=== PATIENT | female | born 1960 ===

== ENCOUNTER 2016-12-28 18:53 | Observation (INO) | payer MEDICAID, SELFPAY ==
[2016-12-28 18:53] VITALS: BMI 31.4
--- NOTE | 2016-12-28 20:01 | ED PDOC ---
HPI: Chest Pain Time Seen by Provider: 12/28/16 19:21 Chief Complaint (Nursing): Chest Pain Chief Complaint (Provider): Chest Pain History Per: Patient History/Exam Limitations: no limitations Onset/Duration Of Symptoms: Days (1x) Current Symptoms Are (Timing): Better (currently improving) Severity: Moderate Quality: Pressure (left sided pressure) Associated Symptoms: Dyspnea, Other (palpitations, anxiety) Additional Complaint(s): 56 year old female presents to the ED with complaints of chest pain that started last night 25x hours prior to arrival while she was at rest. She reports having associated shortness of breath, palpitations, and anxiety. She reports that her symptoms are currently improving. 2x days ago, she had similar symptoms which resolved spontaneously. PMD: Non [facility] provider, Dr. Pelletier Past Medical History Reviewed: Historical Data, Nursing Documentation, Vital Signs Vital Signs: Last Vital Signs Temp 98.2 F 12/28/16 19:03 Pulse 93 H 12/28/16 21:39 Resp 16 12/28/16 19:03 BP 143/87 12/28/16 19:03 Pulse Ox 100 12/28/16 21:39 - Medical History PMH: Asthma, Diabetes, GERD, HIV, HTN, Hypercholesterolemia, Chronic Kidney Disease Other PMH: patient denies having a medical history of: myocardial infarctions, srokes. - Surgical History Surgical History: No Surg Hx Denies: Appendectomy, Tonsillectomy, - Family History Family History: States: Diabetes ("everyone is a diabetic in my house"), Other Other Family History: heart disease - Social History Current smoker - smoking cessation education provided: No Ex-Smoker (has not smoked in the last 12 months): Yes Alcohol: None Drugs: Denies - Home Medications Home Medications: Ambulatory Orders Medication Instructions Recorded Enalapril Maleate [Enalapril] 5 mg PO DAILY 04/08/15 Insulin Glargine, Recombina 65 unit SC HS 04/08/15 [Lantus] Insulin Lispro, Recombinant 15 units SC ASDIR 04/08/15 [Humalog] Metoprolol Tartrate [Lopressor] 50 mg PO DAILY 04/08/15 Ondansetron ODT [Zofran ODT] 4 mg PO Q6 PRN #10 odt 10/14/15 Dicyclomine [Bentyl] 20 mg PO BID PRN #30 tab 05/25/16 Ondansetron [Zofran] 4 mg PO Q8H PRN #30 tab 05/25/16 - Allergies Allergies/Adverse Reactions: Allergies Allergy/AdvReac Type Severity Reaction Status Date / Time naproxen Allergy URTICARIA Verified 12/28/16 20:30 Review of Systems ROS Statement: Except As Marked, All Systems Reviewed And Found Negative Cardiovascular: Positive for: Chest Pain, Palpitations Respiratory: Positive for: Shortness of Breath Musculoskeletal: Positive for: Other (intermittent extremity cramps ongoing for many months) Psych: Positive for: Anxiety Physical Exam - Reviewed Nursing Documentation Reviewed: Yes Vital Signs Reviewed: Yes - Physical Exam Appears: Positive for: Well, Non-toxic, No Acute Distress Head Exam: Positive for: ATRAUMATIC, NORMOCEPHALIC Skin: Positive for: Normal Color, Warm, Dry Eye Exam: Positive for: EOMI, PERRL ENT: Negative for: Pharyngeal Erythema, Tonsillar Exudate Neck: Positive for: Normal Cardiovascular/Chest: Positive for: Regular Rate, Rhythm, Chest Non Tender. Negative for: Murmur Respiratory: Positive for: Normal Breath Sounds. Negative for: Respiratory Distress Gastrointestinal/Abdominal: Positive for: Normal Exam, Soft. Negative for: Tenderness, Mass, Distended, Guarding Back: Positive for: Normal Inspection. Negative for: Decreased ROM Extremity: Positive for: Normal ROM. Negative for: Deformity, Swelling Lymphatic: Negative for: Adenopathy Neurologic/Psych: Positive for: Alert, Oriented (3x). Negative for: Motor/ Sensory Deficits - Laboratory Results Result Diagrams: 12/28/16 20:23 12/28/16 20:30 - ECG ECG: Positive for: Interpreted By Me, Viewed By Me ECG Rhythm: Positive for: Normal QRS, Normal ST Segment, Sinus Rhythm (normal). Negative for: ST/T Changes Rate: 93 (beats per minute) O2 Sat by Pulse Oximetry: 100 (RA) Pulse Ox Interpretation: Normal - Radiology X-Ray: Interpreted by Me, Viewed By Me X-Ray Interpretation: No Acute Disease Medical Decision Making Medical Decision Makin:21 Initial impression: 56 year old female with chest pain. Differential diagnoses include but are not limited to acute coronary syndrome, costochondritis, anxiety , reflux, and pulmonary embolism. Initial plan: * XRay chest * EKG * bloodwork * urine * reevaluation :35 Labs and chest Xray are unremarkable. Discussed with Dr. Meehan ([facility] resident) for hospitalization to rule out acute coronary syndrome. Discussed findings and plan of care with patient. Clinical impression: chest pain. Scribe Attestation: Documented by Pricila Lizama, acting as a scribe for Araceli Machado MD. Provider Scribe Attestation: All medical record entries made by the Scribe were at my direction and personally dictated by me. I have reviewed the chart and agree that the record accurately reflects my personal performance of the history, physical exam, medical decision making, and the department course for this patient. I have also personally directed, reviewed, and agree with the discharge instructions and disposition. Disposition - Clinical Impression Clinical Impression: Chest pain Counseled Patient/Family Regarding: Studies Performed, Diagnosis - Disposition Disposition Time: 19:30 Condition: SERIOUS - Pt Status Changed To: Hospital Disposition Of: Observation - POA Present On Arrival: None
[2016-12-28 20:36] LABS: BASO % 0.5 % (0.0-2.0); EOS # 0.1 K/uL (0.0-0.7); EOS % 1.2 % (0.0-4.0); HEMATOCRIT 37.9 % (34.0-47.0); LYMPH # 2.3 K/uL (1.0-4.3); LYMPH % 28.5 % (20.0-40.0); MEAN CELL VOLUME 89.5 fl (81.0-99.0); MEAN CORPUSCULAR HGB CONC 32.4 g/dL (33.0-37.0); MEAN PLATELET VOLUME 9.1 fl (7.2-11.7); MONO # 0.5 K/uL (0.0-0.8); MONO % 6.7 % (0.0-10.0); NEUT # 5.1 K/uL (1.8-7.0); NEUT % 63.1 % (50.0-75.0); RED CELL DISTRIBUTION WIDTH 14.3 % (11.5-14.5); WHITE BLOOD COUNT 8.1 K/uL (4.8-10.8)
[2016-12-28 20:45] LABS: ALB/GLOB RATIO 1.3 (1.0-2.1); ALKALINE PHOSPHATASE 100 U/L (38-126); ALT/SGPT 40 U/L (9-52); AST/SGOT 21 U/L (14-36); BILIRUBIN,TOTAL 0.3 mg/dl (0.2-1.3); BLOOD UREA NITROGEN 27 mg/dl (7-17); CALCIUM 10.3 mg/dL (8.4-10.2); CARBON DIOXIDE 26 mmol/L (22-30); CHLORIDE 105 mmol/L (98-107); GFR AFRICAN-AMERICAN 56; GLUCOSE,RANDOM 169 mg/dL (65-105); POTASSIUM 4.2 MMOL/L (3.6-5.0); SODIUM 141 mmol/l (132-148); TOTAL PROTEIN 7.5 G/DL (6.3-8.2)
[2016-12-28 20:59] LABS: PARTIAL THROMBOPLASTIN TIME 28.3 Seconds (25.6-37.1)
[2016-12-28 21:15] LABS: THYROID STIMULATING HORMONE 1.79 mIU/ML (0.46-4.68)
[2016-12-28] MEDS ORDERED: INSULIN LISPRO SC SCH (23:15)
[2016-12-28] MEDS ORDERED: [UNRECOGNIZED DRUG - OTHER] SC SCH (23:15)
[2016-12-28] MEDS ORDERED: Patient's Own Med (Insulin Glargine, Recombina [Lantus] 50 UNIT) SC SCH (23:15)
[2016-12-28 23:23] VITALS: RESP 18
[2016-12-28] MEDS ORDERED: Glucagon Recombinant 1 mg Inj IM PRN (23:24)
[2016-12-28] MEDS ORDERED: Dextrose 50% SYRINGE Inj (50 ml) IV PRN (23:24)
--- NOTE | 2016-12-29 00:09 | CP.PCM.HP ---
History of Present Illness - History of Present Illness History of Present Illness: 55 yo F with PMH including IDDM, HTN, HLD, HIV (last CD4 count 764 on 09/26/16) presented to ED with complaint of chest tightness. Patient states tightness began prior to arrival in ED. Described tightness substernally without radiation of pain and she felt she had to take off bra to relieve tightness. Associated with SOB, anxiety, numbness/tingling of bilateral hands at that time which had resolved at time of evaluation. Patient states had similar episode 2 nights ago that was more mild and relieved on its own. Tightness had improved significantly on ED arrival. No chest pain, sob at this time. Patient states feelings of palpitations. Patient states she lost a rent check just prior to arrival as well. No other complaints at this time. Compliant with medications and follow ups. Was seen by PCP earlier today, no complaints at that time. ECW chart reviewed. PMD: [facility]. Brannon, [facility] PMHx: IDDM, HTN, HLD, HIV (last CD4 count 764 on 09/26/16) Meds: Norvir, Isentress, Humalog (), Lantus (50U HS), Enalapril 5mg PO daily, Metoprolol 50mg BID, Atorvastatin 10mg Allergies: Naproxen Surgical hx: non-contributory Family hx: Diabetes, Heart disease Social hx: Lived with family at home. Denies tobacco, ETOH or illicit drug use. Patient contracted HIV from ex >20 years ago (1991). ED Course: Vitals stable. Afebrile. Hemodynamically stable. CXR - NAD EKG- NSR, no acute changes Labs- unremarkable negative troponin x 1 Present on Admission - Present on Admission Any Indicators Present on Admission: No Review of Systems - Review of Systems All systems: reviewed and no additional remarkable complaints except (mentioned in HPI) Past Patient History - Infectious Disease Hx of Infectious Diseases: None - Past Medical History & Family History Past Medical History?: Yes - Past Social History Alcohol: None Drugs: Denies - CARDIAC Hx Cardiac Disorders: Yes - PULMONARY Hx Respiratory Disorders: Yes - NEUROLOGICAL Hx Neurological Disorder: No - HEENT Hx HEENT Problems: No - RENAL Hx Chronic Kidney Disease: Yes - ENDOCRINE/METABOLIC Hx Endocrine Disorders: Yes - HEMATOLOGICAL/ONCOLOGICAL Hx Blood Disorders: Yes - INTEGUMENTARY Hx Dermatological Problems: No - MUSCULOSKELETAL/RHEUMATOLOGICAL Hx Musculoskeletal Disorders: No - GASTROINTESTINAL Hx Gastrointestinal Disorders: No - GENITOURINARY/GYNECOLOGICAL Hx Genitourinary Disorders: No - PSYCHIATRIC Hx Psychophysiologic Disorder: No - SURGICAL HISTORY Hx Appendectomy: No Hx Tonsillectomy: No - ANESTHESIA Hx Anesthesia: No Meds Allergies/Adverse Reactions: Allergies Allergy/AdvReac Type Severity Reaction Status Date / Time naproxen Allergy URTICARIA Verified 12/28/16 20:30 Physical Exam - Constitutional Appears: Well, Non-toxic, No Acute Distress - Head Exam Head Exam: ATRAUMATIC, NORMAL INSPECTION, NORMOCEPHALIC - Eye Exam Eye Exam: EOMI, Normal appearance, PERRL - ENT Exam ENT Exam: Mucous Membranes Moist, Normal Exam - Neck Exam Neck exam: Positive for: Normal Inspection - Respiratory Exam Respiratory Exam: Clear to Auscultation Bilateral, NORMAL BREATHING PATTERN - Cardiovascular Exam Cardiovascular Exam: REGULAR RHYTHM, RRR, +S1, +S2 - GI/Abdominal Exam GI & Abdominal Exam: Normal Bowel Sounds, Soft. absent: Tenderness - Extremities Exam Extremities exam: Positive for: normal inspection - Back Exam Back exam: NORMAL INSPECTION - Neurological Exam Neurological exam: Alert, Oriented x3 - Psychiatric Exam Psychiatric exam: Normal Affect, Normal Mood - Skin Skin Exam: Dry, Intact, Normal Color, Warm Results - Vital Signs Recent Vital Signs: Last Vital Signs Temp 98.1 F 12/28/16 23:20 Pulse 83 12/28/16 23:20 Resp 18 12/28/16 23:20 BP 129/67 12/28/16 23:20 Pulse Ox 100 12/28/16 22:15 - Labs Result Diagrams: 12/28/16 20:23 12/28/16 20:30 - EKG Data EKG Interpreted by: ER Physician EKG shows normal: Sinus rhythm Rate: Normal Assessment & Plan (1) Chest pain Status: Acute (2) Diabetes mellitus Status: Chronic (3) HTN (hypertension) Status: Chronic (4) HLD (hyperlipidemia) Status: Chronic (5) HIV, asymptomatic Status: Chronic (6) DVT prophylaxis Status: Acute - Assessment and Plan (Free Text) Assessment: 55 yo F with PMH including IDDM, HTN, HLD, HIV (last CD4 count 764 on 09/26/16) with chest tightness associated with sob/anxiety. Improved. Plan: (1) Chest pain - associated with sob, anxiety, now resolved - PE unremarkable - labs reviewed, unremarkable - HEART Score: 4 - Trop x 1 negative - continuous cardiac monitoring in telemetry unit - EKG in am - serial troponins to r/o ACS - obtain tsh in am - possibly stress/anxiety related - continue to monitor (2) Diabetes mellitus - Insulin dependent - Continue home meds now - Accuchecks ACHS - ISS (moderate dose) - Diabetic diet (3) HTN (hypertension) - Controlled, asymptomatic - c/w home meds at this time (4) HLD (hyperlipidemia) - c/w atorvastin at this time (5) HIV, asymptomatic - last CD4 count 764 on 09/26/16 - Norvir/isentress, verify meds with pharmacy - managed by igor MORALEZ (6) DVT prophylaxis - SCDs for now
[2016-12-29 06:27] LABS: MEAN CELL VOLUME 88.5 fl (81.0-99.0); MEAN CORPUSCULAR HEMOGLOBIN 29.4 pg (27.0-31.0); MEAN CORPUSCULAR HGB CONC 33.2 g/dL (33.0-37.0); RED CELL DISTRIBUTION WIDTH 14.1 % (11.5-14.5); WHITE BLOOD COUNT 7.7 K/uL (4.8-10.8)
[2016-12-29] MEDS: Insulin Regular 100 units/ml SC SCH ×2 (06:35→11:59)
[2016-12-29 06:45] LABS: ALB/GLOB RATIO 1.3 (1.0-2.1); ALKALINE PHOSPHATASE 93 U/L (38-126); ALT/SGPT 32 U/L (9-52); AST/SGOT 15 U/L (14-36); BILIRUBIN,TOTAL 0.3 mg/dl (0.2-1.3); BLOOD UREA NITROGEN 25 mg/dl (7-17); CALCIUM 9.7 mg/dL (8.4-10.2); CARBON DIOXIDE 22 mmol/L (22-30); CHLORIDE 108 mmol/L (98-107); GFR AFRICAN-AMERICAN 56; GLUCOSE,RANDOM 189 mg/dL (65-105); POTASSIUM 4.3 MMOL/L (3.6-5.0); SODIUM 140 mmol/l (132-148); TOTAL PROTEIN 6.8 G/DL (6.3-8.2)
[2016-12-29 07:05] LABS: THYROID STIMULATING HORMONE 2.47 mIU/ML (0.46-4.68)
[2016-12-29] MEDS ORDERED: INSULIN LISPRO SC SCH (07:30)
[2016-12-29] MEDS ORDERED: [UNRECOGNIZED DRUG - OTHER] SC SCH (07:30)
[2016-12-29] MEDS: Insulin Lispro (humaLOG) 100 Units/ml Inj SC SCH ×2 (08:32→11:58)
--- NOTE | 2016-12-29 08:39 | CP.PCM.PN ---
Subjective - Date & Time of Evaluation Date of Evaluation: 12/29/16 Time of Evaluation: 08:36 - Subjective Subjective: Patient was seen and examined at the bedside. Observed lying comfortably in bed. Complains of mild chest tightness that has improved from admission. Denies any chest pain. States that she has a lot of issues that she is dealing that may have contributed to her anxiety which she believes provoked her chest pain. Denies palpatations, dizzines, SOB, N/V, or weakness. Objective - Vital Signs/Intake and Output Vital Signs (last 24 hours): Temp Pulse Resp BP Pulse Ox 97.9 F 83 18 149/81 97 12/29/16 08:00 12/29/16 08:00 12/29/16 08:00 12/29/16 08:00 12/29/16 08:00 - Medications Medications: Current Medications Atorvastatin Calcium (Lipitor) 10 mg PO DAILY [facility] Dextrose (Dextrose 50% Inj) 0 ml IV STAT PRN; Protocol PRN Reason: Hyglycemia Protocol Dextrose (Glutose 15) 0 gm PO ONCE PRN; Protocol PRN Reason: Hypoglycemia Protocol Enalapril Maleate (Vasotec) 5 mg PO DAILY [facility] Glucagon (Glucagen Diagnostic Kit) 0 mg IM STAT PRN; Protocol PRN Reason: Hypoglycemia Protocol Home Med (Empagliflozin [Jardiance]) 10 mg PO DAILY [facility] Insulin Detemir (Levemir) 50 units SC HS [facility] Last Admin: 12/29/16 00:34 Dose: 50 unit Insulin Human Lispro (Humalog) 20 units SC AC [place] Insulin Human Regular (Humulin R) 0 units SC ACHS [place] PRN Reason: Protocol Last Admin: 12/29/16 06:35 Dose: 3 units Metformin HCl (Glucophage) 750 mg PO BIDWM [facility] Metoprolol Tartrate (Lopressor) 50 mg PO BID [facility] - Labs Labs: 12/29/16 05:40 12/29/16 05:40 PT 11.1 Seconds (9.8-13.1) 12/28/16 20:23 INR 1.0 (0.9-1.2) 12/28/16 20:23 APTT 28.3 Seconds (25.6-37.1) 12/28/16 20:23 - Constitutional Appears: Well, No Acute Distress - Head Exam Head Exam: NORMAL INSPECTION - ENT Exam ENT Exam: Mucous Membranes Moist - Neck Exam Neck Exam: Normal Inspection - Respiratory Exam Respiratory Exam: NORMAL BREATHING PATTERN. absent: Accessory Muscle Use, Rales , Wheezes, Respiratory Distress - Cardiovascular Exam Cardiovascular Exam: REGULAR RHYTHM, +S1, +S2. absent: Murmur - Neurological Exam Neurological Exam: Awake, Oriented x3 - Psychiatric Exam Psychiatric exam: Normal Affect
--- NOTE | 2016-12-29 08:50 | CP.PCM.PN ---
Subjective - Date & Time of Evaluation Date of Evaluation: 12/29/16 Time of Evaluation: 08:47 - Subjective Subjective: Pt was seen and examined at the bedside today. She denies CP but is still experiencing chest tightness which has improved since yesterday. States that she believes her CP was provoked by her anxiety. Denies any palpatations, dizziness, SOB, weakness, or N/V. Objective - Vital Signs/Intake and Output Vital Signs (last 24 hours): Temp Pulse Resp BP Pulse Ox 97.9 F 83 18 149/81 97 12/29/16 08:00 12/29/16 08:35 12/29/16 08:00 12/29/16 08:35 12/29/16 08:00 - Medications Medications: Current Medications Atorvastatin Calcium (Lipitor) 10 mg PO DAILY [facility] Last Admin: 12/29/16 08:35 Dose: 10 mg Dextrose (Dextrose 50% Inj) 0 ml IV STAT PRN; Protocol PRN Reason: Hyglycemia Protocol Dextrose (Glutose 15) 0 gm PO ONCE PRN; Protocol PRN Reason: Hypoglycemia Protocol Enalapril Maleate (Vasotec) 5 mg PO DAILY [facility] Last Admin: 12/29/16 08:35 Dose: 5 mg Glucagon (Glucagen Diagnostic Kit) 0 mg IM STAT PRN; Protocol PRN Reason: Hypoglycemia Protocol Home Med (Empagliflozin [Jardiance]) 10 mg PO DAILY [facility] Insulin Detemir (Levemir) 50 units SC HS [facility] Last Admin: 12/29/16 00:34 Dose: 50 unit Insulin Human Lispro (Humalog) 20 units SC AC [facility] Last Admin: 12/29/16 08:32 Dose: 20 units Insulin Human Regular (Humulin R) 0 units SC ACHS [facility] PRN Reason: Protocol Last Admin: 12/29/16 06:35 Dose: 3 units Metformin HCl (Glucophage) 750 mg PO BIDWM [facility] Metoprolol Tartrate (Lopressor) 50 mg PO BID [facility] Last Admin: 12/29/16 08:35 Dose: 50 mg - Labs Labs: 12/29/16 05:40 12/29/16 05:40 PT 11.1 Seconds (9.8-13.1) 12/28/16 20:23 INR 1.0 (0.9-1.2) 12/28/16 20:23 APTT 28.3 Seconds (25.6-37.1) 12/28/16 20:23 - Constitutional Appears: Well, No Acute Distress - Head Exam Head Exam: NORMOCEPHALIC - Neck Exam Neck Exam: absent: Thyromegaly - Respiratory Exam Respiratory Exam: Clear to Ausculation Bilateral. absent: Accessory Muscle Use , Chest Wall Tenderness, Respiratory Distress - Cardiovascular Exam Cardiovascular Exam: REGULAR RHYTHM, +S1, +S2. absent: Murmur - Extremities Exam Extremities Exam: Normal Capillary Refill. absent: Pedal Edema Assessment and Plan - Assessment and Plan (Free Text) Assessment: Assessment: 55 yo F with PMH including IDDM, HTN, HLD, HIV (last CD4 count 764 on 09/26/16) with chest tightness associated with sob/anxiety. Plan: (1) Chest pain - associated with sob, anxiety, now resolved - PE unremarkable- Patient seems anxious when speaking - labs reviewed, unremarkable - HEART Score: 4 - Trop x 2 negative - continuous cardiac monitoring in telemetry unit - EKG NSR - serial troponins to r/o ACS - TSH normal - possibly stress/anxiety related - Continue to monitor -Likely to be D/C upon normal 3rd troponin -Will need stress test OP (2) Diabetes mellitus - Insulin dependent - Continue home meds now - Accuchecks ACHS - ISS (moderate dose) - Diabetic diet (3) HTN (hypertension) - Controlled, asymptomatic - c/w home meds at this time (4) HLD (hyperlipidemia) - c/w atorvastin at this time (5) HIV, asymptomatic - last CD4 count 764 on 09/26/16 - Norvir/isentress, verify meds with pharmacy - managed by igor MORALEZ (6) DVT prophylaxis - SCDs for now
[2016-12-29] MEDS ORDERED: METOPROLOL TARTRATE 50 MG PO SCH ×2 (09:00)
--- NOTE | 2016-12-29 10:50 | CP.PCM.DIS ---
Provider - Provider Date of Admission: 12/28/16 21:33 Attending physician: Lore Bass MD Consults: None Time Spent in preparation of Discharge (in minutes): 30 Diagnosis - Discharge Diagnosis (1) Chest pain Status: Acute Hospital Course - Lab Results Lab Results: Most Recent Lab Values WBC 7.7 K/uL (4.8-10.8) 12/29/16 05:40 RBC 4.07 Mil/uL (3.80-5.20) 12/29/16 05:40 Hgb 11.9 g/dL (12.0-16.0) L 12/29/16 05:40 Hct 36.0 % (34.0-47.0) 12/29/16 05:40 MCV 88.5 fl (81.0-99.0) 12/29/16 05:40 MCH 29.4 pg (27.0-31.0) 12/29/16 05:40 MCHC 33.2 g/dL (33.0-37.0) 12/29/16 05:40 RDW 14.1 % (11.5-14.5) 12/29/16 05:40 Plt Count 172 K/uL (130-400) 12/29/16 05:40 MPV 9.1 fl (7.2-11.7) 12/28/16 20:23 Neut % (Auto) 63.1 % (50.0-75.0) 12/28/16 20:23 Lymph % (Auto) 28.5 % (20.0-40.0) 12/28/16 20:23 Zavala % (Auto) 6.7 % (0.0-10.0) 12/28/16 20:23 Eos % (Auto) 1.2 % (0.0-4.0) 12/28/16 20:23 Baso % (Auto) 0.5 % (0.0-2.0) 12/28/16 20:23 Neut # 5.1 K/uL (1.8-7.0) 12/28/16 20:23 Lymph # 2.3 K/uL (1.0-4.3) 12/28/16 20:23 Zavala # 0.5 K/uL (0.0-0.8) 12/28/16 20:23 Eos # 0.1 K/uL (0.0-0.7) 12/28/16 20:23 Baso # 0.0 K/uL (0.0-0.2) 12/28/16 20:23 PT 11.1 Seconds (9.8-13.1) 12/28/16 20:23 INR 1.0 (0.9-1.2) 12/28/16 20:23 APTT 28.3 Seconds (25.6-37.1) 12/28/16 20:23 D-Dimer, Quantitative 116 ng/mlDDU (0-230) 12/28/16 20:23 Sodium 140 mmol/l (132-148) 12/29/16 05:40 Potassium 4.3 MMOL/L (3.6-5.0) 12/29/16 05:40 Chloride 108 mmol/L (98-107) H 12/29/16 05:40 Carbon Dioxide 22 mmol/L (22-30) 12/29/16 05:40 Anion Gap 14 (10-20) 12/29/16 05:40 BUN 25 mg/dl (7-17) H 12/29/16 05:40 Creatinine 1.2 mg/dL (0.7-1.2) 12/29/16 05:40 Est GFR ( Amer) 56 12/29/16 05:40 Est GFR (Non-Af Amer) 47 12/29/16 05:40 POC Glucose (mg/dL) 168 mg/dL (65-110) H 12/29/16 08:31 Random Glucose 189 mg/dL (65-105) H 12/29/16 05:40 Calcium 9.7 mg/dL (8.4-10.2) 12/29/16 05:40 Total Bilirubin 0.3 mg/dl (0.2-1.3) 12/29/16 05:40 AST 15 U/L (14-36) 12/29/16 05:40 ALT 32 U/L (9-52) 12/29/16 05:40 Alkaline Phosphatase 93 U/L (38-126) 12/29/16 05:40 Troponin I < 0.0120 ng/mL (0.00-0.120) 12/29/16 05:40 Total Protein 6.8 G/DL (6.3-8.2) 12/29/16 05:40 Albumin 3.9 g/dL (3.5-5.0) 12/29/16 05:40 Globulin 3.0 gm/dL (2.2-3.9) 12/29/16 05:40 Albumin/Globulin Ratio 1.3 (1.0-2.1) 12/29/16 05:40 TSH 3rd Generation 2.47 mIU/ML (0.46-4.68) 12/29/16 05:40 Blood Type AB POSITIVE 12/28/16 20:23 Antibody Screen Negative 12/28/16 20:23 BBK History Checked Patient has bt 12/28/16 20:23 - Hospital Course Hospital Course: Admission date:12/27 16 Discharge Date: 12/29/16 Discharge Diagnosis: Chest pain Consultations: None Procedures: None Complications: None History and Hospital Course:Patient is a 56yo female with hx of HTN, HLD, HIV ( last CD4 764 on 09/26/16) presented with acute substernal chest pain/tightness associated with anxiety and sob. The chest pain resolved within a few minutes and she did not have any episodes during her hospital stay. ECG showed Normal Sinus Rythm and serial Troponin was negative. Medication at Discharge: Enalpril Maleate 5mg PO Daily Insulin Human Lispro (Humalog) 20 units SC Insulin Lantus 50 units SC Metformin Hcl 750mg BID Metropolol 50mg PO BID Norvir Isentress Prez[facility] Discharge Plan: Condition Upon Discharge Activity Level: Ambulating without assistance Diet: Regular Diet Issues to be addressed at follow up: Anxiety management, Possibly will need a stress test PCP Following: Dr. Brannon, f/u within 1-2 weeks. Pt is aware and verbalized that she would f/u - Date & Time of H&P Date of H&P: 12/28/16 Time of H&P: 00:04 Discharge Exam - Head Exam Head Exam: NORMOCEPHALIC - ENT Exam ENT Exam: Mucous Membranes Moist - Neck Exam Neck exam: Meningismus Additional comments: No thyromegaly - Respiratory Exam Respiratory Exam: absent: Accessory Muscle Use, Rales, Wheezes, Respiratory Distress - Cardiovascular Exam Cardiovascular Exam: REGULAR RHYTHM, +S1, +S2 Additional comments: No murmur - GI/Abdominal Exam GI & Abdominal Exam: Normal Bowel Sounds, Soft. absent: Guarding, Organomegaly , Tenderness Additional comments: Positive bowel sounds Discharge Plan - Follow Up Plan Condition: STABLE Disposition: HOME/ ROUTINE Patient education suggested?: No Instructions: Diabetes Mellitus Type 2 in Adults (DC), Hypertension (DC), Hypertension (GEN) Additional Instructions: Activity as tolerated, heart healthy, low fat, low cholesterol , moderate carbohydrate diet. Referrals: Peterson Brannon MD [Resident] -
--- NOTE | 2016-12-29 11:01 | RAD ---
HISTORY: chest pain COMPARISON: 11/16/2015. TECHNIQUE: Chest PA and lateral FINDINGS: LUNGS: Hyperinflation, manifestations of COPD. No active pulmonary disease. PLEURA: No significant pleural effusion identified. No pneumothorax apparent. CARDIOVASCULAR: Normal. OSSEOUS STRUCTURES: No significant abnormalities. VISUALIZED UPPER ABDOMEN: Normal. OTHER FINDINGS: None. IMPRESSION: No active disease. No significant interval change compared to the prior examination(s).
[2016-12-29 12:32] VITALS: BP 99/66; PULSE 73; TEMP 98.1; O2SAT 100
[2016-12-29] MEDS ORDERED: Insulin Detemir 100 Units/ml Inj SC SCH (22:00)
--- NOTE | 2016-12-30 18:23 | CARD ---
APPROVED REPORT EKG Measurement Heart [id number] <Conclusion> Normal sinus rhythm Normal ECG
== END 2016-12-29 14:42 | disposition home or self-care (01) ==
LOC: H.ER 18:53 → H.ERHOLD 21:33 → H.TEL 12-29 00:01
PROVIDERS: ADMIT Family Medicine Geriatric Medicine; ATTEND Family Medicine Geriatric Medicine
DX: R07.9 Chest pain, unspecified (principal); Z21 Asymptomatic human immunodeficiency virus [HIV] infection status; E11.22 Type 2 diabetes mellitus with diabetic chronic kidney disease; E78.00 Pure hypercholesterolemia, unspecified; I12.9 Hypertensive chronic kidney disease with stage 1 through stage 4 chronic kidney disease, or unspecified chronic kidney disease; J45.909 Unspecified asthma, uncomplicated; K21.9 Gastro-esophageal reflux disease without esophagitis; E78.5 Hyperlipidemia, unspecified; F41.9 Anxiety disorder, unspecified; N18.9 Chronic kidney disease, unspecified; Z79.4 Long term (current) use of insulin; Z79.899 Other long term (current) drug therapy; Z87.891 Personal history of nicotine dependence; R00.2 Palpitations

== ENCOUNTER → 2017-07-19 | Day surgery (SDC) | payer SELFPAY ==
[~2017-07-19] MED LIST: Lidocaine 1% Inj (20ml) ONE
[2017-07-19 09:06] VITALS: BMI 32.4
--- NOTE | 2017-07-19 11:02 | CP.SDSHP ---
Same Day Surgery H & P - History Proposed Procedure: US guided thyroid FNA Pre-Op Diagnosis: thyroid nodule - Allergies Allergies: Allergies naproxen Allergy (Verified 12/28/16 20:30) URTICARIA - Physical Exam Vital Signs: Vital Signs 07/19/17 09:05 Temperature 97.4 F L Pulse Rate 95 H Respiratory 20 Rate Blood Pressure 136/65 O2 Sat by Pulse 98 Oximetry - Impression Impression: 57 yo female w/ thyroid nodule; plan US guided FNA - Date & Time Date: 07/19/17 Time: 10:45 Short Stay Discharge - Short Stay Discharge Admitting Diagnosis/Reason for Visit: THYROID NODULE Disposition: HOME/ ROUTINE Referrals: Sakina Ulrich MD [Primary Care Provider] -
--- NOTE | 2017-07-19 11:07 | PCM.SURG1 ---
Surgeon's Initial Post Op Note - Surgeon's Notes Surgeon: Fuad Girard MD Asphalt Heater Operator: None Type of Anesthesia: Local Pre-Operative Diagnosis: thyroid nodule Operative Findings: hypoechoic left lower pole thyroid nodule Post-Operative Diagnosis: same Operation Performed: US Guided Thyroid FNA x1 Specimen/Specimens Removed: FNA LLP thyroid nodule Estimated Blood Loss: EBL {In ML}: 0 Date of Surgery/Procedure: 07/19/17 Time of Surgery/Procedure: 11:00
[2017-07-19 12:03] VITALS: BP 134/76; PULSE 82; RESP 20; TEMP 97.8; O2SAT 98
--- NOTE | 2017-07-20 10:08 | US ---
PROCEDURE: ULTRASOUND-GUIDED THYROID BIOPSY CLINICAL HISTORY: 57-year-old female with suspicious thyroid nodules is referred to Interventional Radiology for ultrasound-guided thyroid FNA. COMPARISON: Thyroid ultrasound dated 05/29/2017. PROCEDURE: 1. Ultrasound-guided thyroid FNA x1. PRE-PROCEDURE FINDINGS: 1. Left lower pole solid hypoechoic nodule. POST-PROCEDURE FINDINGS: 1. No evidence of post-procedural complication. INTERVENTIONAL RADIOLOGIST: Fuad Girard M.D. (the attending was present for the entire procedure.) ANESTHESIA: None. MEDICATION: Lidocaine 1% for local subcutaneous analgesia. COMPLICATIONS: None. PROCEDURE DESCRIPTION AND FINDINGS: The risks, benefits, alternatives and possible complications of the procedure were fully discussed; all questions were answered and informed consent was obtained. The patient was brought into the interventional suite and a pre-procedure 'time-out' was performed. The patient was placed on the ultrasound table in the supine position and the neck was passively extended. The anterior neck was prepped and draped in the usual sterile fashion. Maximum sterile barrier precautions were maintained throughout the entire procedure. Preliminary focused ultrasound images of the thyroid demonstrate the previously identified nodule referred for biopsy. Following subcutaneous infiltration of lidocaine 1% for local analgesia, under ultrasound guidance, utilizing separate needles, multiple fine needle aspirations were performed of the left lower pole thyroid nodule, with real-time visualization of needle entry. The ultrasound images were permanently recorded and sent to the PACS. Adequate hemostasis was achieved utilizing manual compression. A sterile adhesive dressing was applied over the puncture site. The patient tolerated the procedure well without immediate post-procedure complications and was discharged home in stable condition. IMPRESSION: Successful ultrasound-guided fine needle aspiration of the left lower pole thyroid nodule.
== END | disposition home or self-care (01) ==
LOC: H.OPSURG 08:47
PROVIDERS: ATTEND Specialist
DX: E04.1 Nontoxic single thyroid nodule (principal)

== ENCOUNTER 2017-08-30 08:47 | Day surgery (SDC) | payer SELFPAY ==
[2017-08-30 09:01] VITALS: BMI 30.7
[2017-08-30 09:31] VITALS: O2SAT 98
[2017-08-30] MEDS ORDERED: Lidocaine Hydrochloride 1% 10 ML ONE (10:17)
[2017-08-30 10:32] VITALS: RESP 18
--- NOTE | 2017-08-30 10:59 | CP.SDSHP ---
Same Day Surgery H & P - History Proposed Procedure: us guided thyroid fna Pre-Op Diagnosis: suspicious left thyroid nodule - Allergies Allergies: Allergies naproxen Allergy (Verified 12/28/16 20:30) URTICARIA - Physical Exam Vital Signs: Vital Signs 08/30/17 08/30/17 08/30/17 09:29 09:43 10:31 Temperature 98 F 97.1 F L Pulse Rate 84 72 Respiratory 20 12 18 Rate Blood Pressure 140/76 106/67 O2 Sat by Pulse 98 Oximetry - Impression Impression: 57 yo female w/ suspicious thyroid nodule; plan us guided thyroid fna for molecular testing - Date & Time Date: 08/30/17 Time: 10:45 Short Stay Discharge - Short Stay Discharge Admitting Diagnosis/Reason for Visit: NODULE Disposition: HOME/ ROUTINE
--- NOTE | 2017-08-30 11:00 | PCM.SURG1 ---
Surgeon's Initial Post Op Note - Surgeon's Notes Surgeon: Fuad Girard MD Nurse Intern: None Type of Anesthesia: Local Pre-Operative Diagnosis: thyroid nodule Operative Findings: left lower pole solid hypoechoic thyroid nodule Post-Operative Diagnosis: same Operation Performed: us guided thyroid fna x1 Specimen/Specimens Removed: fna left lower pole thyroid nodule for molecular testing Estimated Blood Loss: EBL {In ML}: 3 Date of Surgery/Procedure: 08/30/17 Time of Surgery/Procedure: 11:00
[2017-08-30 12:26] VITALS: BP 125/71; PULSE 80; TEMP 97.8
--- NOTE | 2017-08-30 14:05 | US ---
PROCEDURE: ULTRASOUND-GUIDED THYROID BIOPSY CLINICAL HISTORY: 57-year-old female with suspicious left thyroid nodule status post FNA is referred to Interventional Radiology for additional samples for molecular testing. COMPARISON: Thyroid FNA performed 07/19/2017 and thyroid ultrasound dated 05/29/2017 PROCEDURE: 1. Ultrasound-guided thyroid FNA x1. PRE-PROCEDURE FINDINGS: 1. Left lower pole solid hypoechoic nodule. POST-PROCEDURE FINDINGS: 1. No evidence of post-procedural complication. INTERVENTIONAL RADIOLOGIST: Fuad Girard M.D. (the attending was present for the entire procedure.) ANESTHESIA: None. MEDICATION: Lidocaine 1% for local subcutaneous analgesia. COMPLICATIONS: None. PROCEDURE DESCRIPTION AND FINDINGS: The risks, benefits, alternatives and possible complications of the procedure were fully discussed; all questions were answered and informed consent was obtained. The patient was brought into the interventional suite and a pre-procedure 'time-out' was performed. The patient was placed on the ultrasound table in the supine position and the neck was passively extended. The anterior neck was prepped and draped in the usual sterile fashion. Maximum sterile barrier precautions were maintained throughout the entire procedure. Preliminary focused ultrasound images of the thyroid demonstrate the previously identified nodule referred for biopsy. Following subcutaneous infiltration of lidocaine 1% for local analgesia, under ultrasound guidance, utilizing separate needles, multiple fine needle aspirations were performed of the left lower pole thyroid nodule, with real-time visualization of needle entry. The ultrasound images were permanently recorded and sent to the PACS. Adequate hemostasis was achieved utilizing manual compression. A sterile adhesive dressing was applied over the puncture sites. The patient tolerated the procedure well without immediate post-procedure complications and was discharged home in stable condition. IMPRESSION: Successful ultrasound-guided fine needle aspiration of the left lower pole thyroid nodule submitted for molecular testing.
== END 2017-08-30 12:10 | disposition home or self-care (01) ==
LOC: H.OPSURG 08:47
PROVIDERS: ATTEND Specialist
DX: E04.1 Nontoxic single thyroid nodule (principal)

== ENCOUNTER 2018-04-22 11:16 | Emergency (ER) | payer OTHER ==
[2018-04-22 11:32] VITALS: O2SAT 97
[2018-04-22 11:34] VITALS: BMI 31.8
[2018-04-22] MEDS ORDERED: Albuterol-Ipratrop 3 mg / 0.5 (3 ml) UD INH STA (12:27)
--- NOTE | 2018-04-22 12:33 | ED PDOC ---
HPI: CCC, URI, Sore Throat Time Seen by Provider: 04/22/18 12:16 Chief Complaint (Nursing): ENT Problem Chief Complaint (Provider): Cough,Congestion, Ear/Throat Pain History Per: Patient History/Exam Limitations: no limitations Onset/Duration Of Symptoms: Days (1x week) Current Symptoms Are (Timing): Still Present Location Of Pain: Ear(s) (itchiness and sensation of fullness), Throat (pain and scratchy voice) Sick Contacts (Context): None Associated Symptoms: Sore Throat, Cough (dry), Nasal Congestion. denies: Fever, Sinus Drainage, Nausea, Vomiting, Diarrhea Ear Symptoms: Bilateral: Ear Fullness (and itchiness) Additional Complaint(s): 57 year old female with a past medical history of diabetes and HIV (undetectable viral load) presents to the ED for an evaluation of itchiness and sensation of fullness to the bilateral ears that started 1x week ago. Patient reports having associated symptoms of congestion, dry cough, throat pain with a scratchy voice since yesterday. Patient reports drinking tea and using Vicks (over the counter) with no relief of symptoms. Otherwise: (-) sick contacts, (-) nausea, (-) vomiting, (-) diarrhea, (-) ear drainage, (-) fever, (-) chills, (-) chest pain, (-) dyspnea, (-) hemoptysis, (-) upper back pain, (-) travel, (-) recent prolonged immobility. PMD: Noe Goddard ([facility]) Past Medical History Reviewed: Historical Data, Nursing Documentation, Vital Signs Vital Signs: Last Vital Signs Temp 98.3 F 04/22/18 11:31 Pulse 102 H 04/22/18 11:31 Resp 20 04/22/18 11:31 BP 119/79 04/22/18 11:31 Pulse Ox 97 04/22/18 11:31 - Medical History PMH: Asthma, Diabetes, GERD, HIV, HTN, Hypercholesterolemia, Hyperthyroidism, Chronic Kidney Disease - Surgical History Surgical History: No Surg Hx Denies: Appendectomy - Family History Family History: States: Diabetes ("everyone is a diabetic in my house") - Social History Current smoker - smoking cessation education provided: No Ex-Smoker (has not smoked in the last 12 months): Yes (quit 12x years ago) Alcohol: None Drugs: Denies - Home Medications Home Medications: Ambulatory Orders Medication Instructions Recorded RX: Enalapril Maleate 5 mg PO DAILY 04/08/15 RX: Insulin Glargine, Recombina 50 unit SC HS 04/08/15 [Lantus] RX: Insulin Lispro, Recombinant 20 units SC ACBL 04/08/15 [Humalog] RX: Metoprolol Tartrate [Lopressor] 50 mg PO BID 04/08/15 RX: Atorvastatin Calcium 10 mg PO DAILY 12/29/16 RX: Empagliflozin [Jardiance] 10 mg PO DAILY 12/29/16 RX: Insulin Lispro [Humalog 24 units SQ AC 12/29/16 (Insulin Lispro)] RX: metFORMIN [glucOPHAGE] 750 mg PO BID 12/29/16 Darunavir [Prezista] 800 mg PO DAILY 07/19/17 RX: Cetirizine HCl [All Day 10 mg PO DAILY 07/19/17 Allergy] Ritonavir [Norvir] 100 mg PO DAILY 07/19/17 Acetaminophen [Acetaminophen 8 650 mg PO Q8 PRN #21 tablet.er 04/22/18 Hour] Albuterol Sulfate [Ventolin Hfa] 1 puff IH Q4 PRN #1 unit 04/22/18 Fluticasone Nasal [Flonase] 1 actuation NS DAILY #1 unit 04/22/18 RX: Promethazine DM [Phenergan DM 5 ml PO Q6 PRN #200 ml 04/22/18 Syrup] - Allergies Allergies/Adverse Reactions: Allergies Allergy/AdvReac Type Severity Reaction Status Date / Time naproxen Allergy URTICARIA Verified 04/22/18 11:53 Review of Systems ROS Statement: Except As Marked, All Systems Reviewed And Found Negative Constitutional: Negative for: Fever, Chills ENT: Positive for: Throat Pain (and scratchy voice), Other (ear itchiness and fullness sensation bilaterally). Negative for: Ear Discharge Cardiovascular: Negative for: Chest Pain Respiratory: Positive for: Cough (dry). Negative for: Shortness of Breath Gastrointestinal: Negative for: Nausea, Vomiting, Diarrhea Physical Exam - Reviewed Nursing Documentation Reviewed: Yes Vital Signs Reviewed: Yes - Physical Exam Comments: GENERAL APPEARANCE: Patient is awake, alert, oriented x 3, in no acute distress. Resting comfortably. SKIN: Warm, dry; (-) cyanosis. EYES: (-) conjunctival pallor. NECK: Supple, FROM (-) lymphadenopathy ENMT: Mucous membranes moist. Airway patent: (-) stridor. Pharynx: clear, uvula midline (+) faint erythema, (-) exudate (+) 2+ hypertrophy. Nares patent, (+) rhinorrhea. TM: (-)bulging, (-) erythema. Ear canals patent, (-) exudate, (- ) erythema, (-) vesicles, (-) cerumen impaction. (-) sinus tenderness CHEST AND RESPIRATORY: (-) rhonchi, (-) rales, (-) wheezes. Lungs clear to auscultation with decreased breath sounds bilaterally. Respirations even and nonlabored. HEART AND CARDIOVASCULAR: (-) irregularity EXTREMITIES: (-) deformity NEURO AND PSYCH: Mental status as above. Cranial nerves grossly intact; Gait:steady. Speech: clear. (-) facial asymmetry - ECG O2 Sat by Pulse Oximetry: 97 (RA) Pulse Ox Interpretation: Normal Medical Decision Making Medical Decision Makin:15 Clinical Impression: 57 year old female with a cough, throat pain, probable viral syndrome. Initial plan: * XRay chest 2 views * tylenol 325 mg tab 650 mg PO * rapid strep * reevaluation * Albuterol 3mg INH 1325 CXR: no acute disease Rapid Strep: Negative 1330 Repeat HR: 66 On re-evaluation, patient reports improvement of symptoms. On exam, patient remains AAOx3, in no acute distress. Lungs clear to auscultation, cardiac RRR, repeat neuro exam shows no focal findings. Vitals stable. Lab/Diagnostic results d/w the patient in great detail. Diagnosis of throat pain, cough, viral URI d/w the patient. Based on history, exam and diagnostic results, plan will be for outpatient follow up with PMD. Patient instructed to follow-up with pmd / referral provided / the clinic in 1- 2 days without fail. Advised to take medication as prescribed. Return to the emergency room at any time for any new or worsening symptoms. Patient states she fully agrees with and understands discharge instructions. States that she agrees with the plan and disposition. Verbalized and repeated discharge instructions and plan. I have given the patient opportunity to ask any additional questions. Scribe Attestation: Documented by Pricila Lizama, acting as a scribe for Pricila Cadet Provider Scribe Attestation: All medical record entries made by the Scribe were at my direction and personally dictated by me. I have reviewed the chart and agree that the record accurately reflects my personal performance of the history, physical exam, me dical decision making, and the department course for this patient. I have also personally directed, reviewed, and agree with the discharge instructions and disposition. Disposition - Clinical Impression Clinical Impression: Cough in adult, Throat pain in adult, Voice hoarseness, Viral URI - Patient ED Disposition Is Patient to be Admitted: No Counseled Patient/Family Regarding: Studies Performed, Diagnosis, Need For Followup, Rx Given - Disposition Referrals: Noe Goddard [Other] Disposition: Routine/Home Disposition Time: 13:30 Condition: STABLE Additional Instructions: The emergency medical care you received today was directed at your acute symptoms. If you were prescribed any medication, please fill it and take as directed. It may take several days for your symptoms to resolve. Return to the Emergency Department if your symptoms worsen, do not improve, or if you have any other problems. Please contact your doctor in 2 days for re-evaluation and follow up / or call one of the physicians/clinics you have been referred to that are listed on the Patient Visit Information form that is included in your discharge packet. Bring any paperwork you were given at discharge with you along with any medications you are taking to your follow up visit. Our treatment cannot replace ongoing medical care by a primary care provider (PCP) outside of the emergency department. Prescriptions: Acetaminophen [Acetaminophen 8 Hour] 650 mg PO Q8 PRN #21 tablet.er PRN Reason: Pain, Moderate (4-7) Albuterol Sulfate [Ventolin Hfa] 1 puff IH Q4 PRN #1 unit PRN Reason: Cough Fluticasone Nasal [Flonase] 1 actuation NS DAILY #1 unit RX: Promethazine DM [Phenergan DM Syrup] 5 ml PO Q6 PRN #200 ml PRN Reason: Cough Instructions: Cough in Adults, Sore Throat in Adults, Viral Upper Respiratory Infection, Adult (DC), Cough, Runny Nose, and the Common Cold (DC) Forms: [employer] (Faroese) Print Language: MONEGASQUE - POA Present On Arrival: None Results - Lab Results Lab Results: 04/22/18 12:40 Grp A Beta Strep Ag Negative
[2018-04-22 13:46] VITALS: BP 112/66; PULSE 66; RESP 16; TEMP 98.2
--- NOTE | 2018-04-22 14:39 | RAD ---
Date of service: 04/22/2018 HISTORY: cough COMPARISON: 12/28/2016 TECHNIQUE: Chest PA and lateral FINDINGS: LUNGS: Stable linear scar at both lung bases. No infiltrate.. PLEURA: No significant pleural effusion identified. No pneumothorax apparent. CARDIOVASCULAR: No aortic atherosclerotic calcification present. Normal cardiac size. No pulmonary vascular congestion. OSSEOUS STRUCTURES: No significant abnormalities. VISUALIZED UPPER ABDOMEN: Normal. OTHER FINDINGS: None. IMPRESSION: No active disease.
== END 2018-04-22 13:46 | disposition home or self-care (01) ==
LOC: H.ER 11:16
DX: R05 Cough (principal); J02.9 Acute pharyngitis, unspecified; J06.9 Acute upper respiratory infection, unspecified; R49.0 Dysphonia; E78.00 Pure hypercholesterolemia, unspecified; I12.9 Hypertensive chronic kidney disease with stage 1 through stage 4 chronic kidney disease, or unspecified chronic kidney disease; Z79.4 Long term (current) use of insulin; E05.90 Thyrotoxicosis, unspecified without thyrotoxic crisis or storm